=== PATIENT | female | born 1975 | race African-American/Black ===

== ENCOUNTER 2019-06-02 13:58 | Emergency (ER) | payer MEDICARE, MEDICAID, OTHER ==
--- OUTSIDE RECORDS SUMMARY | 2019-06-02 15:19 | XMS REPORT | Continuity of Care Document ---
:1975 External Reference #:[id number] Author Name [facility] (transmitted by agent of provider Brett Nguyen) Address [address] [place] [address] Care Team Providers Name Role Phone Billy Meredith DO - Interventional Care Team Information Services Coordinator Pain Medicine Bhavin Guzman MD - Internal Care Team Information Services Coordinator Medicine Joe Hurley MD - Internal Care Team Information Services Coordinator [phone] Medicine Problems Description No Information Available Social History Type Date Description Comments Sex Unknown ETOH Use Denies alcohol use Tobacco Use Start: Unknown Light tobacco smoker (10 1/2 ppd or fewer cigarettes/day) Recreational Drug Use Regularly uses Marijuana nightly Exercise Type/Frequency Exercises regularly no exercise regimen but stays active Allergies, Adverse Reactions, Alerts Active Allergies Reaction Severity Comments Date Penicillin throat swells and itching 06/10/2009 Darvocet throat swells and itching 06/10/2009 Tylenol itching and stomach ache 06/10/2009 Naproxen 04/05/2017 Latex 04/05/2017 Shellfish-Derived Products 04/05/2017 Benzonatate 04/05/2017 Morphine 04/05/2017 Medications Active Medications SIG Qnty Indications Ordering Date Provider Kenalog tid 30gm 692.3 Thomas, 08/25/2009 0.1% Cream MD Bhavin Vicoprofen 1 po q 4 hours 25tabs Jarod Singh, 06/10/2009 7.5-200mg prn pain M.D. Tablets Nexium 24HR 1 by mouth three Unknown 20mg Capsules times per day DR Shi ER 2 by mouth daily Unknown 15mg Tab ER 12H Abuse-Det Opana ER 1 by mouth daily Unknown 10mg Tab ER 12H Abuse-Det Sumatriptan Succinate use at onset of Unknown 100mg head ache,may Tablets repeat after 2h as needed Cyclobenzaprine HCL 1 tablet by Unknown 10mg mouth q8 hours Tablets as needed muscle spasms Ketotifen Fumarate 1 drop each eye Unknown 0.025% twice a day for Solution 2 weeks Cetirizine HCL as needed Unknown 10mg Chewtabs Buspirone HCL 1 by mouth three Unknown 15mg Tablets times per day Opana - Slow Release by mouth three Unknown 10mg to four times a Tablets day as needed Opana ER bid Unknown 30mg Tab ER 12H Abuse-Det Gabapentin 2 po tid Unknown 200mg Capsules Tums prn Unknown Pepto-Bismol as needed Unknown Rolaids as needed Unknown 550-110mg Chewtabs Absorbine Angel applying to Unknown right shoulder and neck prn Benadryl Allergy prn Unknown 25mg Valium 1 po q6hrs prn Unknown 5mg Tablets Medications Administered in Office Medication SIG Qnty Indications Ordering Provider Date PPD Injection Chuy Xiong MD 07/24/2018 Immunizations Description No Information Available Vital Signs Date Vital Result Comment 05/16/2017 12:54pm Height 69 inches 5'9" Weight 194.00 lb Heart Rate 94 /min BP Systolic 110 mmHg Rue reg cuff BP Diastolic 76 mmHg Rue reg cuff BP Systolic Sitting 120 mmHg Lue reg cuff BP Diastolic Sitting 78 mmHg Lue reg cuff BP Systolic Standing 108 mmHg Lue BP Diastolic Standing 84 mmHg Lue Respiratory Rate 16 /min O2 % BldC Oximetry 97 % room air BMI (Body Mass Index) 28.6 kg/m2 08/25/2009 1:26pm Weight 142.00 lb Heart Rate 82 /min BP Systolic Sitting 98 mmHg BP Diastolic Sitting 56 mmHg Results Description No Information Available Procedures Description No Information Available Medical Devices Description No Information Available Encounters Description No Information Available Assessments Description No Information Available Plan of Treatment 05/16/2017 - Manohar Acevedo, FACCR07.9 Chest pain, unspecifiedFollow up: PRNR06.02 Shortness of lcochyV16.2 PisjekczapbjA26.210 Nicotine dependence, cigarettes, uncomplicated Functional Status Description No Information Available Mental Status Description No Information Available Referrals Description No Information Available
--- OUTSIDE RECORDS SUMMARY | 2019-06-02 15:19 | XMS REPORT | Continuity of Care Document ---
:1975 External Reference #:[id number] Author Name Joe Hurley M.D. (transmitted by agent of provider Alyson Rock) Address [address] [place] [address] Care Team Providers Name Role Phone HCP given Care Team Information Mortgage Loan Coordinator Unavailable Merced Staton MD [facility] - Dermatology Care Team Information Mortgage Loan Coordinator [facility], Care Team Information Mortgage Loan Coordinator [facility] - Care Team Information Mortgage Loan Coordinator [phone] Gastroenterology Problems Active Problems Provider Date Neck pain Greg Brian D.O. Onset: 07/02/2014 Neuralgia Greg Brian D.O. Onset: 07/02/2014 Chronic pain syndrome Joe Hurley M.D. Onset: 11/13/2014 Generalized anxiety disorder Joe Hurley M.D. Onset: 11/13/2014 Restless legs Joe Hurley M.D. Onset: 11/13/2014 Fibromyalgia Joe Hurley M.D. Onset: 11/13/2014 Gastroesophageal reflux disease Joe Hurley M.D. Onset: 12/12/2016 Asthma Jane Nolasco PA Onset: 11/12/2018 Posttraumatic stress disorder Jane Nolasco PA Onset: 11/12/2018 Bilateral carpal tunnel syndrome Joe Hurley M.D. Onset: 12/04/2018 Tobacco user Joe Hurley M.D. Onset: 04/29/2019 Social History Type Date Description Comments Sex Unknown Tobacco Use Reviewed: 11/12/18 current cigarette smoker ~1ppd. Hoping to quit winter 2018. Smoking Status Reviewed: 11/12/18 current cigarette smoker ~1ppd. Hoping to quit winter 2018. Tobacco Use Start: Unknown Patient is a current smoker, smokes every day Sun Exposure Uses sunscreen Seat Belt/Car Seat Seat Belt Use - Yes Allergies, Adverse Reactions, Alerts Active Allergies Reaction Severity Comments Date Penicillins throat swelling 06/30/2014 Naproxen hives 06/30/2014 Latex rash 06/30/2014 Adhesives rash/burn skin 06/30/2014 Shellfish-derived Products "my throat closes" 08/10/2014 Benzonatate numbs throat 11/24/2015 Morphine Urticaria 01/31/2017 Medications Active Medications SIG Qnty Indications Ordering Date Provider Hydroxyzine HCL take 1-2 tablets 60tabs F41.1 Joe Hurley, 05/28/2019 25mg by mouth up to M.D. Tablets four times a day as needed for acute anxiety Sulfamethoxazole/Tri 1 by mouth twice a 6tabs N39.0 Joe Hurley, 05/27 methoprim DS day x3 days; for M.D. urinary tract 800-160mg Tablets infection Proair HFA 2 puffs every 4 J20.9 Joe Hurley, 04/29/2019 hours as needed M.D. 108(90Base) mcg/Act for cough, Aerosol wheezing, sob PT For Left Shoulder evaluate and M25.512 Joe Hurley, 04/29/2019 Pain treat, modalities M.D. as needed, instruct in hep Oxymorphone HCL ER 1 tab by mouth 60tabs G89.4 Joe Hurley, 04/29/2019 twice a day for M.D. 30mg Tablets ER 12HR chronic pain; rx due 05/04/19 Hair Skin And Nails one po daily Unknown 03/03/2019 Formula Tablets Chantix 1/2 pill once/day 60tabs F17.210 Joe Hurley, 12/04/2018 1mg Tablets x3 days then 1/2 M.D. pill 2x/day for 4 days then 1 pill twice daily; to help quit smoking; start 1wk prior to your quit date PT For Mixed (Stress evaluate and N39.46 Joe Hurley, 12/04/2018 And Urge) Urinary treat, instruct in M.D. Incontinence hep Breo Ellipta take 1 puff by 60units J45.21 Joe Hurley, 11/12/2018 mouth every day, M.DSunita 200-25mcg/Inh rinse mouth after Aerosol use Oxymorphone HCL ER 1 by mouth daily 30tabs G89.4 Joe Hurley, 2018 in the afternoon; M.D. 7.5mg Tablets ER for chronic pain; 12HR Rx due 05/04/19 Wrist Immobilizer use as directed 2units G56.03 Joe Hurley, 2018 For Both Hands For (for carpal tunnel M.D. CTS syndrome) Gabapentin 1 cap by mouth 30caps G25.81 Joe Hurley, 06/18/2017 400mg every evening for M.D. Capsules restless legs F41.1 Gabapentin 2 capsules daily in 180caps G25.81 Joe Hurley, 06/12/2017 100mg the morning and M.D. Capsules afternoon; take 2 more at night if needed; for restless legs and anxiety F41.1 Benzoyl apply to 46.6units L70.9 Mei, 05/09/2017 Peroxide-Erythromycin affected areas Tsering Diaz 5-3% Gel on face twice a day; for acne Benadryl Allergy as directed as Unknown 01/30/2017 25mg Tablets needed Buspirone HCL Take One Tablet 90tabs F41.1 Mei, 10/13/2016 15mg Tablets By Mouth Three Tsering Diaz Times A Day For Anxiety Cetirizine HCL 1 by mouth every 30tabs J30.9 Mei, 08/04/2016 10mg Tablets day as needed Tsering Diaz for allergies Escitalopram Oxalate Take One Tablet 30tabs F34.1 Mei, 02/07/2016 20mg Tablets By Mouth Every Tsering Diaz Day For Mood F41.1 Albuterol Sulfate 1 unit inhaled four 90ml J20.9 Joe Hurley, 2015 times a day as needed Tsering (2.5mg/3ML) 0.083% for cough or Nebulizer shortness of breath R06.2 Opana 1 by mouth every 6 120tabs G89.4 Joe Hurley M.D. 07/10/2014 10mg Tablets hours as needed for pain; Rx due 05/04/19 M79.7 Sumatriptan Succinate take 1/2-1 tablet 6tabs G43.109 Joe Hurley, 06/2014 100mg by mouth at first M.D. Tablets sign of migraine; may repeat in 2 hours if migraine partially relieved; max 3x/wk Cyclobenzaprine HCL Take One Tablet By 90tabs G89.4 Joe Hurley, 06/29 10mg Mouth Three Times M.D. Tablets A Day as Needed For Muscle Spasms M79.7 History Medications Oseltamivir 1 by mouth twice a 10caps R50.9 Mei 05/19/2019 - Phosphate day x5 days, for Tsering Diaz 05/20/2019 75mg suspected flu Capsules Prednisone 1 by mouth every day 5tabs J45.21 Mei 05/19/2019 - 50mg x5 days for asthma Tsering Diaz 05/24/2019 Tablets exacerbation Oseltamivir 1 by mouth every day 10caps Mei, 04/04/2019 - Phosphate x10 days; for flu Tsering Diaz 04/14/2019 75mg prevention Capsules Medications Administered in Office Medication SIG Qnty Indications Ordering Provider Date Toradol 15MG. Greg Brian D.OSunita 07/02/2014 Injection SC/Im Injections Greg Brian D.O. 07/02/2014 Injection Immunizations CPT Code Status Date Vaccine Lot # [id number] Given 12/04/2018 Influenza Virus Vaccine, Quadrivalent, Split, [id number] Preservative Free 62162 Given 02/01/2018 Influenza Virus Vaccine, Quadrivalent, Split, [id number] Preservative Free 90216 Given 01/24/2017 MMR Virus Immunization [id number] 13808 Given 12/12/2016 Influenza Virus Vaccine, Quadrivalent, Split, [id number] Preservative Free 46268 Given 12/28/2014 Influenza Virus Vaccine, Quadrivalent, Split, [id number] Preservative Free 27070 Given 07/02/2014 Adacel or Boostrix, TDaP [id number] Vital Signs Date Vital Result Comment 05/19/2019 3:08pm Heart Rate 92 /min reg Respiratory Rate 16 /min not laboured Body Temperature 98.4 F 04/29/2019 10:07am BP Systolic 98 mmHg BP Diastolic 60 mmHg Weight 207.00 lb w/shoes Results Test Acquired Date Facility Test Result H/L Range Note Influenza A & B 05/19/2019 [facility] Flu AB (SEE NOTE) 1 Request [phone] Disclaimer Influenza A Molecular Negative Negative Influenza B Molecular Negative Negative 2 Laboratory test 05/19/2019 [facility] Covid19, PCR Undetected 3 finding [phone] CBC Auto Diff 03/12/2019 [facility] White Blood 7.7 10^3/uL Normal 3.5-10 [phone] Count .8 Red Blood Count 4.23 10^6/uL Normal 3.70-4.87 Hemoglobin 12.0 g/dL Normal 12.0-16.0 Hematocrit 36 % Normal 35-47 Mean Corpuscular Volume 86 fL Normal 80-97 Mean Corpuscular Hemoglobin 28 pg Normal 27-31 Mean Corpuscular HGB Conc 33 g/dL Normal 31-36 Red Cell Distribution Width 14 % Normal 10-15 Platelet Count 291 10^3/uL Normal 150-450 Mean Platelet Volume 7.9 fL Normal 7.4-10.4 Abs Neutrophils 4.3 10^3/uL Normal 1.5-7.7 Abs Lymphocytes 2.7 10^3/uL Normal 1.0-4.8 Abs Monocytes 0.4 10^3/uL Normal 0-0.8 Abs Eosinophils 0.2 10^3/uL Normal 0-0.6 Abs Basophils 0.1 10^3/uL Normal 0-0.2 Abs Nucleated RBC 0.0 10^3/uL Granulocyte % 55.8 % Lymphocyte % 35.0 % Monocyte % 5.4 % Eosinophil % 2.8 % Basophil % 1.0 % Nucleated Red Blood Cells % 0.2 Comp Metabolic Panel 03/12/2019 [facility] Sodium 138 mmol/L Normal 135-145 [phone] Potassium 3.8 mmol/L Normal 3.5-5.0 Chloride 109 mmol/L Normal 101-111 Co2 Carbon Dioxide 22 mmol/L Normal 22-32 Anion Gap 7 mmol/L Normal 2-11 Glucose 111 mg/dL High 70-100 Blood Urea Nitrogen 7 mg/dL Normal 6-24 Creatinine 0.71 mg/dL Normal 0.51-0.95 BUN/Creatinine Ratio 9.9 Normal 8-20 Calcium 8.8 mg/dL Normal 8.6-10.3 Total Protein 6.7 g/dL Normal 6.4-8.9 Albumin 3.8 g/dL Normal 3.2-5.2 Globulin 2.9 g/dL Normal 2-4 Albumin/Globulin Ratio 1.3 Normal 1-3 Total Bilirubin 0.30 mg/dL Normal 0.2-1.0 Alkaline Phosphatase 56 U/L Normal 34-104 Alt 10 U/L Normal 7-52 Ast 12 U/L Low 13-39 Egfr Non- 90.7 >60 Egfr 109.8 >60 4 Laboratory test finding 03/12/2019 [facility] Lipase 15 U/L Normal 11.0-82.0 [phone] HCG < 0.60 mIU/mL 5 C Reactive Protein 3.36 mg/L Normal <8.01 Erythrocyte Sed Rate 26 mm/Hr High 0-19 1 Suboptimal collection technique may reduce sensitivity of test. Refer to the [facility] Test Catalog for collection information: [email or web address] As with all diagnostic procedures, the laboratory results obtained should be used in conjunction with other clinical information available to the physician, including confirmation by another method, as applicable. 2 Tobacco Stripping Machine Operator: [id number] 3 Test Name Result Reference Range SARS-CoV-2 RNA Undetected Undetected SARS-CoV-2 RNA is not detected. ADDITIONAL INFORMATION Testing was performed using the tori SARS-CoV-2 assay ([employer] on the tori 6800 System. Fact sheets for this Emergency Use Authorization (EUA) assay can be found at the following links: For Healthcare Providers: https://www.[employer].gov/media/451627/download For Patients: https://www.[employer].gov/media/157289/download Test Performed by: [facility] [address] [place] [address] Hand Therapist: John Stroud M.D. Ph.D.; CLIA# [id number] 4 Because ethnic data is not always readily available, this report includes an eGFR for both -Americans and non- Americans. The National Kidney Disease Education Program (NKDEP) does not endorse the use of the MDRD equation for patients that are not between the ages of 18 and 70, are , have extremes of body size, muscle mass, or nutritional status, or are non- or non-. According to the National Kidney Foundation, irrespective of diagnosis, the stage of the disease is based on the level of kidney function: Stage Description GFR(mL/min/1.73 m(2)) 1 Kidney damage with normal or decreased GFR 90 2 Kidney damage with mild decrease in GFR 60-89 3 Moderate decrease in GFR 30-59 4 Severe decrease in GFR 15-29 5 Kidney failure <15 (or dialysis) 5 <5.0 Negative 5.0 - 25.0 Indeterminate (Repeat testing recommended after 72 hours) >25.0 Positive Perimenopausal women can display HCG levels of up to 20 mIU/mL Procedures Description No Information Available Medical Devices Description No Information Available Encounters Type Date Location Provider Dx Diagnosis Office Visit 05/28/2019 3:00p Main Office Joe Hurley M.D. R05 Cough R50.9 Fever, unspecified J45.21 Mild intermittent asthma with (acute) exacerbation F41.1 Generalized anxiety disorder N39.0 Urinary tract infection, site not specified W17.89xD Other fall from one level to another, subsequent encounter Office Visit 05/19/2019 1:15p Main Office Joe Hurley M.D. R05 Cough R50.9 Fever, unspecified R06.00 Dyspnea, unspecified J45.21 Mild intermittent asthma with (acute) exacerbation F41.1 Generalized anxiety disorder Office Visit 05/16/2019 1:30p Main Office Joe Hurley, F43.22 Adjustment M.D. disorder with anxiety Office Visit 04/29/2019 9:45a Main Office Joe Hurley, M25.512 Pain in left M.D. shoulder G89.4 Chronic pain syndrome Z79.891 intermediate (current) use of opiate analgesic F17.210 Nicotine dependence, cigarettes, uncomplicated G25.81 Restless legs syndrome M79.7 Fibromyalgia F34.1 Dysthymic disorder F41.1 Generalized anxiety disorder Office Visit 03/18/2019 2:30p Main Office Tawanna Zacarias, R10.11 Right upper MD quadrant pain Z68.29 Body mass index (BMI) 29.0-29.9, adult Office Visit 03/04/2019 11:15a Main Office Joe Hurley G89.4 Chronic pain M.D. 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 05/28/2019 R50.9 Fever, unspecified Joe Hurley M.D. 05/28/2019 J45.21 Mild intermittent asthma with (acute) Joe Hurley M.D. exacerbation 05/28/2019 F41.1 Generalized anxiety disorder Joe Hurley M.D. 05/28/2019 N39.0 Urinary tract infection, site not specified Joe Hurley M.D. 05/28/2019 W17.89xD Other fall from one level to another, Joe Hurley M.D. subsequent encounter 05/19/2019 R05 Cough Joe Hurley M.D. 05/19/2019 R50.9 Fever, unspecified Joe Hurley M.D. 05/19/2019 R06.00 Dyspnea, unspecified Joe Hurley M.D. 05/19/2019 J45.21 Mild intermittent asthma with (acute) Joe Hurley M.D. exacerbation 05/19/2019 F41.1 Generalized anxiety disorder Joe Hurley M.D. 05/16/2019 F43.22 Adjustment disorder with anxiety Joe Hurley M.D. 04/29/2019 M25.512 Pain in left shoulder Joe Hurley M.D. 04/29/2019 G89.4 Chronic pain syndrome Joe Hurley M.D. 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 04/29/2019 F17.210 Nicotine dependence, cigarettes, Joe Hurley M.D. uncomplicated 04/29/2019 G25.81 Restless legs syndrome Joe Hurley M.D. 04/29/2019 M79.7 Fibromyalgia Joe Hurley M.D. 04/29/2019 F34.1 Dysthymic disorder Joe Hurley M.D. 04/29/2019 F41.1 Generalized anxiety disorder Joe Hurley M.D. 03/18/2019 R10.11 Right upper quadrant pain Tawanna Zacarias MD 03/18/2019 Z68.29 Body mass index (BMI) 29.0-29.9, adult Tawanna Zacarias MD 03/04/2019 G89.4 Chronic pain syndrome Joe Hurley M.D. 03/04/2019 Z79.891 intermediate (current) use of opiate analgesic Joe Hurley M.D. 03/04/2019 F17.210 Nicotine dependence, cigarettes, Joe Hurley M.D. uncomplicated 03/04/2019 G25.81 Restless legs syndrome Joe Hurley M.D. 03/04/2019 M79.7 Fibromyalgia Joe Hurley M.D. 03/04/2019 F34.1 Dysthymic disorder Joe Hurley M.D. 03/04/2019 F41.1 Generalized anxiety disorder Joe Hurley M.D. 03/04/2019 N39.46 Mixed incontinence Joe Hurley M.D. 03/04/2019 Z68.30 Body mass index (BMI) 30.0-30.9, adult Joe Hurley M.D. 12/04/2018 F17.210 Nicotine dependence, cigarettes, Joe Hurley M.D. uncomplicated 12/04/2018 G89.4 Chronic pain syndrome Joe Hurley M.D. 12/04/2018 Z79.891 intermediate (current) use of opiate analgesic Joe Hurley M.D. 12/04/2018 G56.03 Carpal tunnel syndrome, bilateral upper Joe Hurley M.D. limbs 12/04/2018 G25.81 Restless legs syndrome Joe Hurley M.D. 12/04/2018 M79.7 Fibromyalgia Joe Hurley M.D. 12/04/2018 F34.1 Dysthymic disorder Joe Hurley M.D. 12/04/2018 F41.1 Generalized anxiety disorder Joe Hurley M.D. 12/04/2018 N39.46 Mixed incontinence Joe Hurley M.D. 12/04/2018 Z23 Encounter for immunization Joe Hurley M.D. 12/04/2018 J45.21 Mild intermittent asthma with (acute) Joe Hurley M.D. exacerbation Plan of Treatment Future Appointment(s):07/01/2019 4:45 pm - Joe Hurley M.D. at Main [id number]/01/2017 - Jane Nolasco, PAB37.0 Candidal stomatitisNew Medication: Nystatin 812794 Unit/ML - 5ml by mouth (swish and spit) four times a day x7 daysComments:Rx for Nystatin oral solution (swish and spit). Discussed proper wear and cleaning of dentures. Recheck if sx not improving.R53.83 Other fatigueComments:Labs as below. Pt has f/u appt next month. Functional Status Description No Information Available Mental Status Description No Information Available Referrals Description No Information Available
--- OUTSIDE RECORDS SUMMARY | 2019-06-02 15:19 | XMS REPORT | Continuity of Care Document ---
:1975 External Reference #:[id number] Author Name Joe Hurley M.D. (transmitted by agent of provider Lindsey Villalobos) Address [address] [facility] [address] [place] [address] Care Team Providers Name Role Phone HCP given Care Team Information Outer Diameter Grinder Unavailable Merced Staton MD Faad - Dermatology Care Team Information Outer Diameter Grinder [facility], Care Team Information Outer Diameter Grinder [facility] [place] - Care Team Information Outer Diameter Grinder [phone] Gastroenterology Problems Active Problems Provider Date Neck [...] Medications SIG Qnty Indications Ordering Date Provider Prednisone 1 by mouth every 5tabs J45.21 Silcoff, 05/19/2019 50mg day x5 days for Tsering Diaz Tablets asthma exacerbation Proair HFA 2 puffs every 4 J20.9 Silcoff, 04/29/2019 hours as needed for Tsering Diaz 108(90Base) mcg/Act cough, wheezing, Aerosol sob PT For Left Shoulder evaluate and treat, M25.512 Silcoff, 04/29/2019 Pain modalities as Tsering Diaz needed, instruct in hep Oxymorphone HCL ER 1 tab by mouth 60tabs G89.4 Silcoff, 04/29/2019 twice a day for Tsering Diaz 30mg Tablets ER 12HR chronic pain; rx due 05/04/19 Hair Skin And Nails one po daily Unknown 03/03/2019 Formula Tablets Chantix 1/2 pill once/day 60tabs F17.210 Silcoff, 12/04/2018 1mg Tablets x3 days then 1/2 Tsering Diaz pill 2x/day for 4 days then 1 pill twice daily; to help quit smoking; start 1wk prior to your quit date PT For Mixed (Stress evaluate and treat, N39.46 Silcoff, 12/04/2018 And Urge) Urinary instruct in hep Tsering Diaz Incontinence Breo Ellipta take 1 puff by 60units J45.21 Silcoff, 11/12/2018 mouth every day, Tsering Diaz 200-25mcg/Inh rinse mouth after Aerosol use Oxymorphone HCL ER 1 by mouth daily in 30tabs G89.4 Silco, 11/09/2018 the afternoon; for Tsering Diaz 7.5mg Tablets ER chronic pain; Rx 12HR due 05/04/19 Wrist Immobilizer use as directed 2units G56.03 Silco, 06/07/2018 For Both Hands For (for carpal tunnel Tsering Diaz CTS syndrome) Gabapentin 1 cap by mouth 30caps G25.81 Silcomaricel, 06/18/2017 400mg every evening for Tsering Diaz Capsules restless legs F41.1 Gabapentin 2 capsules daily in 180caps G25.81 [facility], [facility]12[facility]2017 100mg the morning and M.DSunita Capsules afternoon; take 2 more at night if needed; for restless legs and anxiety F41.1 Benzoyl apply to 46.6units L70.9 [facility] [place] 05/09/2017 Peroxide-Erythromycin affected areas Tsering Diaz 5-3% Gel on face twice a day; for acne Benadryl Allergy as directed as Unknown 01/30/2017 25mg Tablets needed Buspirone HCL Take One Tablet 90tabs F41.1 [facility], 10/13/2016 15mg Tablets By Mouth Three Tsering Diaz Times A Day For Anxiety Cetirizine HCL 1 by mouth every 30tabs J30.9 Nirmalaco, 08/04/2016 10mg Tablets day as needed Tsering [...] HCL Take One Tablet By 90tabs G89.4 Mei Joe, 06/29 10mg Mouth Three Times M.D. Tablets A Day as Needed For Muscle Spasms M79.7 History Medications Oseltamivir 1 by mouth twice a 10caps R50.9 Mei Joe, 05/19/2019 - Phosphate day x5 days, for M.D. 05/20/2019 75mg suspected flu Capsules Oseltamivir 1 by mouth every 10caps Joe Hurley, 04/04/2019 - Phosphate day x10 days; for M.D. 04/14/2019 75mg flu prevention Capsules Medications Administered in Office Medication SIG Qnty Indications Ordering Provider Date Toradol 15MG. Greg Brian D.OSunita 07/02/2014 Injection SC/Im Injections Greg Brian D.OSunita 07/02/2014 Injection Immunizations CPT Code Status Date Vaccine Lot # [id number] Given 12/04/2018 Influenza Virus Vaccine, Quadrivalent, Split, [id number] Preservative Free 08623 Given 02/01/2018 Influenza Virus Vaccine, Quadrivalent, Split, [id number] Preservative Free 94723 Given 01/24/2017 MMR Virus Immunization [id number] 92114 Given 12/12/2016 Influenza Virus Vaccine, Quadrivalent, Split, [id number] Preservative Free 32696 Given 12/28/2014 Influenza Virus Vaccine, Quadrivalent, Split, [id number] Preservative Free 07372 Given 07/02/2014 Adacel or Boostrix, TDaP [id number] Vital Signs Date Vital Result Comment 05/19/2019 3:08pm Heart Rate 92 /min reg Respiratory Rate 16 /min not laboured Body Temperature 98.4 F 04/29/2019 10:07am BP Systolic 98 mmHg BP Diastolic 60 mmHg Weight 207.00 lb w/shoes Results Test Acquired Date Facility Test Result H/L Range Note Influenza A & B 05/19/2019 [facility] Flu AB (SEE NOTE) 1 Request [phone] Disclaimer Influenza A Molecular Negative Negative Influenza B Molecular Negative Negative 2 CBC Auto Diff 03/12/2019 [facility] White Blood 7.7 10^3/uL Normal 3.5-10.8 [phone] Count Red Blood Count 4.23 10^6/uL Normal 3.70-4.87 [...] Cells % 0.2 Comp Metabolic Panel 03/12/2019 [facility] Sodium 138 mmol/L Normal 135-145 [phone] Potassium 3.8 mmol/L Normal 3.5-5.0 Chloride 109 [...] Egfr Non- 90.7 >60 Egfr 109.8 >60 3 Laboratory test finding 03/12/2019 [facility] Lipase 15 U/L Normal 11.0-82.0 [phone] HCG < 0.60 mIU/mL 4 C Reactive Protein 3.36 mg/L Normal <8.01 Erythrocyte Sed Rate 26 mm/Hr High 0-19 1 Suboptimal collection technique may reduce sensitivity of test. Refer to the [facility] Test Catalog for collection information: [email or web address] As with all diagnostic procedures, the laboratory results obtained should be used in conjunction with other clinical information available to the physician, including confirmation by another method, as applicable. 2 Internet Marketing Director: [id number] 3 Because ethnic data is not always readily [...] 15-29 5 Kidney failure <15 (or dialysis) 4 <5.0 Negative 5.0 - 25.0 Indeterminate (Repeat testing recommended after 72 hours) >25.0 Positive Perimenopausal women can display HCG levels of up to 20 mIU/mL Procedures Description No Information Available Medical Devices Description No Information Available Encounters Type Date Location Provider Dx Diagnosis Office Visit 05/19/2019 1:15p Main Office Joe Hurley M.D. R05 Cough R50.9 Fever, unspecified R06.00 Dyspnea, unspecified J45.21 Mild intermittent asthma with (acute) exacerbation F41.1 Generalized anxiety disorder Office Visit 05/16/2019 1:30p Main Office Joe Hurley, F43.22 Adjustment M.D. disorder with anxiety Office Visit 04/29/2019 9:45a Main Office Joe Hurley, M25.512 Pain in left M.D. shoulder G89.4 Chronic pain syndrome Z79.891 [facility] (current) use of opiate analgesic F17.210 Nicotine dependence, cigarettes, uncomplicated G25.81 Restless legs syndrome M79.7 Fibromyalgia F34.1 Dysthymic disorder F41.1 Generalized anxiety disorder Office Visit 03/18/2019 2:30p Main Office Tawanna Zacarias, R10.11 Right upper MD quadrant pain Z68.29 Body mass index (BMI) 29.0-29.9, adult Office Visit 03/04/2019 11:15a Main Office Joe Hurley, G89.4 Chronic pain M.D. syndrome Z79.891 [facility] (current) use of opiate analgesic F17.210 Nicotine dependence, cigarettes, uncomplicated G25.81 Restless legs syndrome M79.7 Fibromyalgia F34.1 Dysthymic disorder F41.1 Generalized anxiety disorder N39.46 Mixed incontinence Z68.30 Body mass index (BMI) 30.0-30.9, adult Office Visit 12/04/2018 10:15a Main Office Mei F17.210 Nicotine Joe moffett M.D. cigarettes, uncomplicated G89.4 Chronic pain syndrome Z79.891 termination clerk (current) use of opiate analgesic G56.03 Carpal tunnel syndrome, bilateral upper limbs G25.81 Restless legs syndrome M79.7 Fibromyalgia F34.1 Dysthymic disorder F41.1 Generalized anxiety disorder N39.46 Mixed incontinence Z23 Encounter for immunization J45.21 Mild intermittent asthma with (acute) exacerbation Assessments Date Code Description Provider 05/19/2019 R05 Cough Joe Hurley M.D. 05/19/2019 [...] pain syndrome Joe Hurley M.D. 04/29/2019 Z79.891 [facility] (current) use of opiate analgesic Joe Hurley [...] pain syndrome Joe Hurley M.D. 03/04/2019 Z79.891 [facility] (current) use of opiate analgesic Joe Hurley [...] pain syndrome Joe Hurley M.D. 12/04/2018 Z79.891 [facility] (current) use of opiate analgesic Joe Hurley [...] pm - Joe Hurley M.D. at Main Qqzjij5011/01/2017 - Jane Nolasco, PAB37.0 Candidal stomatitisNew Medication: Nystatin 602396 Unit/ML - 5ml by mouth (swish and [...]
--- OUTSIDE RECORDS SUMMARY | 2019-06-02 15:19 | XMS REPORT | Continuity of Care Document ---
:1975 External Reference #:[id number] Author Name Joe Hurley M.D. (transmitted by agent of provider Lindsey Villalobos) Address [address] [facility] [address] [place] [address] Care Team Providers Name Role Phone HCP given Care Team Information Formulation Scientist Unavailable Merced Staton MD Faad - Dermatology Care Team Information Formulation Scientist [phone] [place] [facility], Care Team Information Formulation Scientist [phone] [facility] [place] - Care Team Information Formulation Scientist [phone] Gastroenterology Problems Active Problems Provider Date Neck pain Greg Brian D.O. Onset: 07/02/2014 Neuralgia Greg Brian D.O. Onset: 07/02/2014 Chronic pain syndrome Joe Hurley M.D. Onset: 11/13/2014 Generalized anxiety disorder Joe Hurley M.D. Onset: 11/13/2014 Restless legs Joe Hurley M.D. Onset: 11/13/2014 Fibromyalgia Joe Hurley M.D. Onset: 11/13/2014 Gastroesophageal reflux disease Joe Hruley M.D. Onset: 12/12/2016 Asthma Jane Nolasco PA Onset: 11/12/2018 Posttraumatic stress disorder Jane Nolasco PA Onset: 11/12/2018 Bilateral carpal tunnel syndrome Joe Hurley M.D. Onset: 12/04/2018 Tobacco user Joe Hruley M.D. Onset: 04/29/2019 Social History Type Date [...] CPT Code Status Date Vaccine Lot # [id number] Given 12/04/2018 Influenza Virus Vaccine, Quadrivalent, Split, [id number] Preservative Free 53124 Given 02/01/2018 Influenza Virus Vaccine, Quadrivalent, Split, [id number] Preservative Free 53014 Given 01/24/2017 MMR Virus Immunization [id number] 17020 Given 12/12/2016 Influenza Virus Vaccine, Quadrivalent, Split, [id number] Preservative Free 89838 Given 12/28/2014 Influenza Virus Vaccine, Quadrivalent, Split, [id number] Preservative Free 81781 Given 07/02/2014 Adacel or Boostrix, TDaP [id number] Vital Signs Date Vital Result Comment 05/19/2019 3:08pm Heart Rate 92 /min reg Respiratory Rate 16 /min not laboured Body Temperature 98.4 F 04/29/2019 10:07am BP Systolic 98 mmHg BP Diastolic 60 mmHg Weight 207.00 lb w/shoes Results Test Acquired Date Facility Test Result H/L Range Note Influenza A & B 05/19/2019 [facility] Flu AB (SEE NOTE) 1 Request [phone] Disclaimer Influenza A Molecular Negative Negative Influenza B Molecular Negative Negative 2 Laboratory test 05/19/2019 [facility] Covid19, PCR Undetected 3 finding [phone] CBC Auto Diff 03/12/2019 [facility] White Blood 7.7 10^3/uL Normal 3.5-10 [phone] Count .8 Red Blood Count 4.23 10^6/uL [...] Cells % 0.2 Comp Metabolic Panel 03/12/2019 [facility] Sodium 138 mmol/L Normal 135-145 [phone] Potassium 3.8 mmol/L Normal 3.5-5.0 Chloride 109 [...] 109.8 >60 4 Laboratory test finding 03/12/2019 [facility] Lipase 15 U/L Normal 11.0-82.0 [phone] HCG < 0.60 mIU/mL 5 C Reactive Protein 3.36 mg/L Normal <8.01 Erythrocyte Sed Rate 26 mm/Hr High 0-19 1 Suboptimal collection technique may reduce sensitivity of test. Refer to the [facility] Test Catalog for collection information: [email or web address] As with all diagnostic procedures, the laboratory results obtained should be used in conjunction with other clinical information available to the physician, including confirmation by another method, as applicable. 2 Guide Dog Mobility Instructor: [id number] 3 Test Name Result Reference Range SARS-CoV-2 RNA Undetected Undetected SARS-CoV-2 RNA is not detected. ADDITIONAL INFORMATION Testing was performed using the tori SARS-CoV-2 assay ([employer] on the tori 6800 System. Fact sheets for this Emergency Use Authorization (EUA) assay can be found at the following links: For Healthcare Providers: https://www.EquityLancer.gov/media/331119/download For Patients: https://www.EquityLancer.gov/media/493105/download Test Performed by: [facility] [address] [place] [address] Pharmacology Associate: John Stroud M.D. Ph.D.; CLIA# [id number] 4 Because ethnic data is not always [...] M.D. shoulder G89.4 Chronic pain syndrome Z79.891 [facility] (current) use of opiate analgesic F17.210 Nicotine dependence, cigarettes, uncomplicated G25.81 Restless legs syndrome M79.7 Fibromyalgia F34.1 Dysthymic disorder F41.1 Generalized anxiety disorder Office Visit 03/18/2019 2:30p Main Office Tawanna Zacarias, R10.11 Right upper MD quadrant pain Z68.29 Body mass index (BMI) 29.0-29.9, adult Office Visit 03/04/2019 11:15a Main Office Joe Hurley G89.4 Chronic pain M.D. syndrome Z79.891 [facility] (current) use of opiate analgesic F17.210 Nicotine dependence, cigarettes, uncomplicated G25.81 Restless legs syndrome M79.7 Fibromyalgia F34.1 Dysthymic disorder F41.1 Generalized anxiety disorder N39.46 Mixed incontinence Z68.30 Body mass index (BMI) 30.0-30.9, adult Office Visit 12/04/2018 10:15a Main Office Mei F17.210 Nicotine Joe moffett M.D. cigarettes, uncomplicated G89.4 Chronic pain syndrome Z79.891 roasterman (current) use of opiate analgesic G56.03 Carpal [...] pain syndrome Joe Hurley M.D. 04/29/2019 Z79.891 roasterman (current) use of opiate analgesic Joe Hurley [...] pain syndrome Joe Hurley M.D. 03/04/2019 Z79.891 [facility] (current) use of opiate analgesic Joe Hurley [...] pain syndrome Joe Hurley M.D. 12/04/2018 Z79.891 roasterman (current) use of opiate analgesic Joe Hurley [...] pm - Joe Hurley M.D. at Main Hciojd2811/01/2017 - Jane Nolasco, PAB37.0 Candidal stomatitisNew Medication: Nystatin 126386 Unit/ML - 5ml by mouth (swish and [...]
--- OUTSIDE RECORDS SUMMARY | 2019-06-02 15:19 | XMS REPORT | Continuity of Care Document ---
:1975 External Reference #:[id number] Author Name Joe Hurley M.D. (transmitted by agent of provider Lindsey Villalobos) Address [address] [facility] [address] [place] [address] Care Team Providers Name Role Phone HCP given Care Team Information Cloth Laminating Supervisor Unavailable Merced Staton MD Faad - Dermatology Care Team Information Cloth Laminating Supervisor [phone] [facility], Care Team Information Cloth Laminating Supervisor [facility] [place] - Care Team Information Cloth Laminating Supervisor [phone] Gastroenterology Problems Active Problems Provider Date Neck [...] Medications SIG Qnty Indications Ordering Date Provider Proair HFA 2 puffs every 4 J20.9 [...] J45.21 Joe Hurley, 11/12/2018 mouth every day, M.D. 200-25mcg/Inh rinse mouth after Aerosol use Oxymorphone HCL ER 1 by mouth daily 30tabs G89.4 Joe Hurley, 2018 in the afternoon; M.DSunita 7.5mg Tablets ER for chronic pain; 12HR [...] Hurley, 2015 times a day as needed NelsonDSunita (2.5mg/3ML) 0.083% for cough or Nebulizer shortness [...] M79.7 History Medications Oseltamivir 1 by mouth every 10caps Joe Hurley, 04/04/2019 - Phosphate day x10 days; for M.D. 04/14/2019 75mg flu prevention Capsules Azithromycin 2 tabs by mouth 6tabs J20.9 Joe Hurley, 11/12/2018 - 250mg daily x1 day then M.D. 12/03/2018 Tablets 1 tab by mouth daily x4 days J01.90 Prednisone 1 by mouth every 5tabs J45.21 Mei, 11/09/2018 - 50mg day x5 days for Tsering Diaz 11/14/2018 Tablets asthma exacerbation Symbicort 2 puffs 2x/day; 2samples J45.21 Mei, 11/08/2018 - gargle after use; sTering Diaz 11/12/2018 160-4.5mcg/Act for acute Aerosol bronchitis Medications Administered in Office Medication SIG Qnty Indications Ordering Provider Date Toradol 15MG. Greg Brian D.OSunita 07/02/2014 Injection SC/Im Injections Greg Brian D.O. 07/02/2014 Injection Immunizations CPT Code Status Date Vaccine Lot # [id number] Given 12/04/2018 Influenza Virus Vaccine, Quadrivalent, Split, [id number] Preservative Free 59982 Given 02/01/2018 Influenza Virus Vaccine, Quadrivalent, Split, [id number] Preservative Free 83460 Given 01/24/2017 MMR Virus Immunization [id number] 60862 Given 12/12/2016 Influenza Virus Vaccine, Quadrivalent, Split, [id number] Preservative Free 32009 Given 12/28/2014 Influenza Virus Vaccine, Quadrivalent, Split, [id number] Preservative Free 66983 Given 07/02/2014 Adacel or Boostrix, TDaP [id number] Vital Signs Date Vital Result Comment 04/29/2019 10:07am BP Systolic 98 mmHg BP Diastolic 60 mmHg Weight 207.00 lb w/shoes 03/18/2019 2:49pm BP Systolic 104 mmHg BP Diastolic 80 mmHg Height 69 inches 5'9" Weight 198.00 lb BMI (Body Mass Index) 29.2 kg/m2 Results Test Acquired Date Facility Test Result H/L Range Note CBC Auto 03/12/2019 [facility] White Blood 7.7 10^3/uL Normal 3.5- 10.8 Diff [phone] Count Red Blood Count 4.23 10^6/uL Normal [...] Cells % 0.2 Comp Metabolic Panel 03/12/2019 [facility] Sodium 138 mmol/L Normal 135-145 [phone] Potassium 3.8 mmol/L Normal 3.5-5.0 Chloride 109 [...] Egfr Non- 90.7 >60 Egfr 109.8 >60 1 Laboratory test finding 03/12/2019 [facility] Lipase 15 U/L Normal 11.0-82.0 [phone] HCG < 0.60 mIU/mL 2 C Reactive Protein 3.36 mg/L Normal <8.01 Erythrocyte Sed Rate 26 mm/Hr High 0-19 1 Because ethnic data is not always readily [...] 15-29 5 Kidney failure <15 (or dialysis) 2 <5.0 Negative 5.0 - 25.0 Indeterminate (Repeat testing recommended after 72 hours) >25.0 Positive Perimenopausal women can display HCG levels of up to 20 mIU/mL Procedures Date Code Description Status 11/09/2018 09546 Oximetry, Single Completed 11/09/2018 00031 Inhalation Therapy Completed Medical Devices Description No Information Available Encounters Type Date Location Provider Dx Diagnosis Office Visit 04/29/2019 Main Office Joe Hurley, M25.512 Pain in left 9:45a M.D. shoulder G89.4 Chronic pain syndrome Z79.891 [facility] (current) use of opiate analgesic F17.210 Nicotine dependence, cigarettes, uncomplicated G25.81 Restless legs syndrome M79.7 Fibromyalgia F34.1 Dysthymic disorder F41.1 Generalized anxiety disorder Office Visit 03/18/2019 2:30p Main Office Tawanna Zacarias, R10.11 Right upper MD quadrant pain Z68.29 Body mass index (BMI) 29.0-29.9, adult Office Visit 03/04/2019 11:15a Main Office Joe Hurley G89.4 Chronic pain M.D. syndrome Z79.891 [facility] (current) use of opiate analgesic F17.210 Nicotine dependence, cigarettes, uncomplicated G25.81 Restless legs syndrome M79.7 Fibromyalgia F34.1 Dysthymic disorder F41.1 Generalized anxiety disorder N39.46 Mixed incontinence Z68.30 Body mass index (BMI) 30.0-30.9, adult Office Visit 12/04/2018 10:15a Main Office Mei F17.210 Nicotine dependence, Tsering Diaz cigarettes, uncomplicated G89.4 Chronic pain syndrome Z79.891 intermediate accountant (current) use of opiate analgesic G56.03 Carpal tunnel syndrome, bilateral upper limbs G25.81 Restless legs syndrome M79.7 Fibromyalgia F34.1 Dysthymic disorder F41.1 Generalized anxiety disorder N39.46 Mixed incontinence Z23 Encounter for immunization J45.21 Mild intermittent asthma with (acute) exacerbation Office Visit 11/12/2018 4:10p Main Office Jane Nolasco, J20.9 Acute bronchitis, PA unspecified J45.21 Mild intermittent asthma with (acute) exacerbation J01.90 Acute sinusitis, unspecified Office Visit 11/09/2018 9:30a Main Office Joe Hurley J45.21 Mild intermittent M.D. 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 04/29/2019 G89.4 Chronic pain syndrome Joe Hurley M.D. 04/29/2019 Z79.891 intermediate accountant (current) use of opiate analgesic Joe Hurley [...] syndrome Joe Hurley M.D. 03/04/2019 Z79.891 intermediate accountant (current) use of opiate analgesic Joe Hurley [...] syndrome Joe Hurley M.D. 12/04/2018 Z79.891 intermediate accountant (current) use of opiate analgesic Joe Hurley [...] asthma with (acute) Joe Hurley M.D. exacerbation 11/12/2018 J20.9 Acute bronchitis, unspecified Jane Nolasco PA 11/12/2018 J45.21 Mild intermittent asthma with (acute) Jane Nolasco PA exacerbation 11/12/2018 J01.90 Acute sinusitis, unspecified Jane Nolasco PA 11/09/2018 J45.21 Mild intermittent asthma with (acute) Joe Hurley M.D. exacerbation 11/09/2018 R06.00 Dyspnea, unspecified Joe Hurley M.D. 11/09/2018 G89.4 Chronic pain syndrome Joe Hurley M.D. 11/09/2018 M54.2 Cervicalgia Joe Hurley M.D. 11/09/2018 Z79.891 intermediate accountant (current) use of opiate analgesic Joe Hurley M.D. 11/09/2018 F17.210 Nicotine dependence, cigarettes, Joe Hurley M.D. uncomplicated Plan of Treatment Future Appointment(s):07/01/2019 4:45 pm - Joe Hurley M.D. at Main Niutsq3011/01/2017 - Jane Nolasco, PAB37.0 Candidal stomatitisNew Medication: Nystatin 083303 Unit/ML - 5ml by mouth (swish and [...]
--- OUTSIDE RECORDS SUMMARY | 2019-06-02 15:19 | XMS REPORT | Continuity of Care Document ---
:1975 External Reference #:[id number] Author Name Joe Hurley M.D. (transmitted by agent of provider Heather Marvin) Address [address] [facility] [address] [place] [address] Care Team Providers Name Role Phone HCP given Care Team Information Asbestos Wire Finisher Unavailable Merced Staton MD [facility] - Dermatology Care Team Information Asbestos Wire Finisher [facility], Care Team Information Asbestos Wire Finisher [facility] - Care Team Information Asbestos Wire Finisher [phone] Gastroenterology Problems Active Problems Provider Date Neck [...] a day as needed for acute anxiety Proair HFA 2 puffs every 4 J20.9 [...] instruct in M.D. Incontinence hep Breo Ellipta Inhale One puff By 60units J45.21 Joe Hurley, 11/12/2018 Mouth Every Day M.DSunita 200-25mcg/Inh (Rinse Mouth After Aerosol Use) Oxymorphone HCL ER 1 by mouth daily [...] Hurley, 2015 times a day as needed MSunitaDSunita (2.5mg/3ML) 0.083% for cough or Nebulizer shortness of breath R06.2 Opana 1 by mouth every 6 120tabs G89.4 Joe Hurley M.D. 07/10/2014 10mg Tablets hours as needed for pain; Rx due 3/8/20 M79.7 Sumatriptan Succinate take 1/2-1 tablet 6tabs G43.109 Joe Hurley, 06/2014 100mg by mouth at first M.D. Tablets sign of migraine; may repeat in 2 hours if migraine partially relieved; max 3x/wk Cyclobenzaprine HCL Take One Tablet By 90tabs G89.4 Joe Hurley, 06/29 10mg Mouth Three Times M.D. Tablets A Day as Needed For Muscle Spasms M79.7 History Medications Sulfamethoxazole/Trimethoprim DS 1 by mouth 6tabs N39.0 Mei, 2019 - 800-160mg twice a day x3 Joe, 05/31/2019 Tablets days; for M.D. urinary tract infection Oseltamivir Phosphate 1 by mouth 10caps R50.9 Silcoff, 05/19/2019 - 75mg Capsules twice a day x5 Joe, 05/20/2019 days, for M.D. suspected flu Prednisone 1 by mouth 5tabs J45.21 Silbrynn, 05/19/2019 - 50mg Tablets every day x5 Joe, 05/24/2019 days for asthma M.D. exacerbation Oseltamivir Phosphate 1 by mouth 10caps Silcomaricel, 04/04/2019 - 75mg Capsules every day x10 Joe, 04/14/2019 days; for flu M.D. prevention Medications Administered in Office Medication SIG Qnty Indications Ordering Provider Date Toradol 15MG. Greg Brian D.O. 07/02/2014 Injection SC/Im Injections Greg Brian D.O. 07/02/2014 Injection Immunizations CPT Code Status Date Vaccine Lot # [id number] Given 12/04/2018 Influenza Virus Vaccine, Quadrivalent, Split, [id number] Preservative Free 57936 Given 02/01/2018 Influenza Virus Vaccine, Quadrivalent, Split, [id number] Preservative Free 42907 Given 01/24/2017 MMR Virus Immunization [id number] 81238 Given 12/12/2016 Influenza Virus Vaccine, Quadrivalent, Split, [id number] Preservative Free 25848 Given 12/28/2014 Influenza Virus Vaccine, Quadrivalent, Split, [id number] Preservative Free 15035 Given 07/02/2014 Adacel or Boostrix, TDaP [id number] Vital Signs Date Vital Result Comment 05/19/2019 3:08pm Heart Rate 92 /min reg Respiratory Rate 16 /min not laboured Body Temperature 98.4 F 04/29/2019 10:07am BP Systolic 98 mmHg BP Diastolic 60 mmHg Weight 207.00 lb w/shoes Results Test Acquired Date Facility Test Result H/L Range Note Influenza A & B 05/19/2019 [facility] Flu AB (SEE NOTE) 1 Request [phone] Disclaimer Influenza A Molecular Negative Negative Influenza B Molecular Negative Negative 2 Laboratory test 05/19/2019 [facility] Covid19, PCR Undetected 3 finding [phone] CBC Auto Diff 03/12/2019 [facility] White Blood 7.7 10^3/uL Normal 3.5-10 [phone] Count .8 Red Blood Count 4.23 10^6/uL [...] Cells % 0.2 Comp Metabolic Panel 03/12/2019 [facility] Sodium 138 mmol/L Normal 135-145 [phone] Potassium 3.8 mmol/L Normal 3.5-5.0 Chloride 109 [...] 109.8 >60 4 Laboratory test finding 03/12/2019 [facility] Lipase 15 U/L Normal 11.0-82.0 [phone] HCG < 0.60 mIU/mL 5 C Reactive Protein 3.36 mg/L Normal <8.01 Erythrocyte Sed Rate 26 mm/Hr High 0-19 1 Suboptimal collection technique may reduce sensitivity of test. Refer to the [facility] Test Catalog for collection information: [email or web address] As with all diagnostic procedures, the laboratory results obtained should be used in conjunction with other clinical information available to the physician, including confirmation by another method, as applicable. 2 Driver Salesman: [id number] Test Name Result Reference Range SARS-CoV-2 RNA Undetected Undetected SARS-CoV-2 RNA is not detected. ADDITIONAL INFORMATION Testing was performed using the tori SARS-CoV-2 assay ([employer] on the tori 6800 System. Fact sheets for this Emergency Use Authorization (EUA) assay can be found at the following links: For Healthcare Providers: https://www.Invenshure.gov/media/518291/download For Patients: https://www.Invenshure.gov/media/594862/download Test Performed by: [facility] [address] [place] [address] Acid Dumper: John Stroud M.D. Ph.D.; CLIA# [id number] 4 Because ethnic data is not always [...] Date Location Provider Dx Diagnosis Office Visit 06/02/2019 Main Office Joe Hurley, R06.00 Dyspnea, unspecified 1:15p Tsering R05 Cough J45.21 Mild intermittent asthma with (acute) exacerbation N39.0 Urinary tract infection, site not specified Office Visit 05/28/2019 3:00p Main Office Joe [...] Office Visit 04/29/2019 9:45a Main Office Joe Hurley M25.512 Pain in left M.D. shoulder G89.4 Chronic pain syndrome Z79.891 intermediate card tender (current) use of opiate analgesic F17.210 Nicotine dependence, cigarettes, uncomplicated G25.81 Restless legs syndrome M79.7 Fibromyalgia F34.1 Dysthymic disorder F41.1 Generalized anxiety disorder Office Visit 03/18/2019 2:30p Main Office Tawanna Zacarias, R10.11 Right upper MD quadrant pain Z68.29 Body mass index (BMI) 29.0-29.9, adult Office Visit 03/04/2019 11:15a Main Office Joe Hurley G89.4 Chronic pain M.D. syndrome Z79.891 skilled nursing (current) use of opiate analgesic F17.210 Nicotine dependence, cigarettes, uncomplicated G25.81 Restless legs syndrome M79.7 Fibromyalgia F34.1 Dysthymic disorder F41.1 Generalized anxiety disorder N39.46 Mixed incontinence Z68.30 Body mass index (BMI) 30.0-30.9, adult Office Visit 12/04/2018 10:15a Main Office Mei F17.210 Nicotine dependence, Tsering Diaz cigarettes, uncomplicated G89.4 Chronic pain syndrome Z79.891 skilled nursing (current) use of opiate analgesic G56.03 Carpal tunnel syndrome, bilateral upper limbs G25.81 Restless legs syndrome M79.7 Fibromyalgia F34.1 Dysthymic disorder F41.1 Generalized anxiety disorder N39.46 Mixed incontinence Z23 Encounter for immunization J45.21 Mild intermittent asthma with (acute) exacerbation Assessments Date Code Description Provider 06/02/2019 R06.00 Dyspnea, unspecified Joe Hurley M.D. 06/02/2019 R05 Cough Joe Hurley M.D. 06/02/2019 J45.21 Mild intermittent asthma with (acute) Joe Hurley M.D. exacerbation 06/02/2019 N39.0 Urinary tract infection, site not specified Joe Hurley M.D. 05/28/2019 R05 Cough Joe Hurley M.D. 05/28/2019 [...] pain syndrome Joe Hurley M.D. 04/29/2019 Z79.891 skilled nursing (current) use of opiate analgesic Joe Hurley [...] syndrome Joe Hurley M.D. 03/04/2019 Z79.891 intermediate card tender (current) use of opiate analgesic Joe Hurley [...] pain syndrome Joe Hurley M.D. 12/04/2018 Z79.891 skilled nursing (current) use of opiate analgesic Joe Hurley M.D. 12/04/2018 G56.03 Carpal tunnel syndrome, bilateral upper Joe Hulrey M.D. limbs 12/04/2018 G25.81 Restless legs syndrome [...] pm - Joe Hurley M.D. at Main Yppkxd4411/01/2017 - Jane Nolasco, PAB37.0 Candidal stomatitisNew Medication: Nystatin 947627 Unit/ML - 5ml by mouth (swish and [...]
--- OUTSIDE RECORDS SUMMARY | 2019-06-02 15:19 | XMS REPORT | Continuity of Care Document ---
:1975 External Reference #:[id number] Author Name Joe Hurley M.D. (transmitted by agent of provider Lindsey Villalobos) Address [address] [facility] [address] [place] [address] Care Team Providers Name Role Phone HCP given Care Team Information Superintendent Transportation Unavailable Merced Staton MD [facility] - Dermatology Care Team Information Superintendent Transportation [facility], Care Team Information Superintendent Transportation [phone] [facility] - Care Team Information Superintendent Transportation [phone] Gastroenterology Problems Active Problems Provider Date Neck [...] Medications SIG Qnty Indications Ordering Date Provider Oseltamivir 1 by mouth twice a 10caps R50.9 Silcoff, 05/19/2019 Phosphate day x5 days, for Tsering Diaz 75mg suspected flu Capsules Prednisone 1 by mouth every 5tabs J45.21 [...] Ellipta take 1 puff by 60units J45.21 Silcomaricel, 11/12/2018 mouth every day, Tsering Diaz 200-25mcg/Inh rinse mouth after Aerosol use Oxymorphone HCL ER 1 by mouth daily in 30tabs G89.4 Silcoff, 11/09/2018 the afternoon; for Tsering Diaz 7.5mg Tablets ER chronic pain; Rx 12HR due 05/04/19 Wrist Immobilizer use as directed 2units G56.03 Silcoff, 06/07/2018 For Both Hands For (for carpal tunnel Tsering Diaz CTS syndrome) Gabapentin 1 cap by mouth 30caps G25.81 Silcomaricel, 06/18/2017 400mg every evening for Tsering Diaz Capsules restless legs F41.1 Gabapentin 2 capsules daily in 180caps G25.81 Silcoff, Joe, 06/12/2017 100mg the morning and M.DSunita Capsules afternoon; take 2 more at night if needed; for restless legs and anxiety F41.1 Benzoyl apply to 46.6units L70.9 Silcoff, 05/09/2017 Peroxide-Erythromycin affected areas Tsering Diaz 5-3% Gel on face twice a day; for acne Benadryl Allergy as directed as Unknown 01/30/2017 25mg Tablets needed Buspirone HCL Take One Tablet 90tabs F41.1 Silcoff, 10/13/2016 15mg Tablets By Mouth Three Tsering Diaz Times A Day For Anxiety Cetirizine HCL 1 by mouth every 30tabs J30.9 Silcoff, 08/04/2016 10mg Tablets day as needed Tsering Diaz for allergies Escitalopram Oxalate Take One Tablet 30tabs F34.1 Silcoff, 02/07/2016 20mg Tablets By Mouth Every Tsering Diaz Day For Mood F41.1 Albuterol Sulfate 1 unit inhaled four 90ml J20.9 Silcoff, Joe, 2015 times a day as needed MPaz (2.5mg/3ML) 0.083% for cough or Nebulizer shortness [...] For Muscle Spasms M79.7 History Medications Oseltamivir Phosphate 1 by mouth every 10caps Joe Hurley, 2019 - day x10 days; for M.D. 04/14/2019 75mg Capsules flu prevention Medications Administered in Office Medication SIG Qnty Indications Ordering Provider Date Toradol 15MG. Greg Brian D.OSunita 07/02/2014 Injection SC/Im Injections Greg Brian D.OSunita 07/02/2014 Injection Immunizations CPT Code Status Date Vaccine Lot # 33095 Given 12/04/2018 Influenza Virus Vaccine, Quadrivalent, Split, [id number] Preservative Free 90874 Given 02/01/2018 Influenza Virus Vaccine, Quadrivalent, Split, [id number] Preservative Free 86822 Given 01/24/2017 MMR Virus Immunization [id number] 41180 Given 12/12/2016 Influenza Virus Vaccine, Quadrivalent, Split, [id number] Preservative Free 93446 Given 12/28/2014 Influenza Virus Vaccine, Quadrivalent, Split, [id number] Preservative Free 04661 Given 07/02/2014 Adacel or Boostrix, TDaP [id number] Vital Signs Date Vital Result Comment 05/19/2019 3:08pm Respiratory Rate 16 /min not laboured Body Temperature 98.4 F 04/29/2019 10:07am BP Systolic 98 mmHg BP Diastolic 60 mmHg Weight 207.00 lb w/shoes Results Test Acquired Date Facility Test Result H/L Range Note Influenza A & B 05/19/2019 [facility] Flu AB (SEE NOTE) 1 Request [phone] Disclaimer Influenza A Molecular Negative Negative Influenza B Molecular Negative Negative 2 CBC Auto Diff 03/12/2019 [facility] White Blood 7.7 10^3/uL Normal 3.5-10.8 [phone] Count Red Blood Count 4.23 10^6/uL Normal [...] Cells % 0.2 Comp Metabolic Panel 03/12/2019 [facility] Sodium 138 mmol/L Normal 135-145 [phone] Potassium 3.8 mmol/L Normal 3.5-5.0 Chloride 109 [...] 109.8 >60 3 Laboratory test finding 03/12/2019 [facility] Lipase 15 U/L Normal 11.0-82.0 [phone] HCG < 0.60 mIU/mL 4 C Reactive Protein 3.36 mg/L Normal <8.01 Erythrocyte Sed Rate 26 mm/Hr High 0-19 1 Suboptimal collection technique may reduce sensitivity of test. Refer to the [facility] Test Catalog for collection information: [email or web address] As with all diagnostic procedures, the laboratory results obtained should be used in conjunction with other clinical information available to the physician, including confirmation by another method, as applicable. 2 Drafter Assistant: [id number] 3 Because ethnic data is not always [...] intermittent asthma with (acute) exacerbation Office Visit 05/16/2019 1:30p Main Office Joe Hurley F43.22 Adjustment M.D. disorder with anxiety Office Visit 04/29/2019 9:45a Main Office Joe Hurley, M25.512 Pain in left M.D. shoulder G89.4 Chronic pain syndrome Z79.891 residential (current) use of opiate analgesic F17.210 Nicotine dependence, cigarettes, uncomplicated G25.81 Restless legs syndrome M79.7 Fibromyalgia F34.1 Dysthymic disorder F41.1 Generalized anxiety disorder Office Visit 03/18/2019 2:30p Main Office Rell Tawanna L, R10.11 Right upper MD quadrant pain Z68.29 Body mass index (BMI) 29.0-29.9, adult Office Visit 03/04/2019 11:15a Main Office Joe Hurley, G89.4 Chronic pain M.D. syndrome Z79.891 residential (current) use of opiate analgesic F17.210 Nicotine dependence, cigarettes, uncomplicated G25.81 Restless legs syndrome M79.7 Fibromyalgia F34.1 Dysthymic disorder F41.1 Generalized anxiety disorder N39.46 Mixed incontinence Z68.30 Body mass index (BMI) 30.0-30.9, adult Office Visit 12/04/2018 10:15a Main Office Mei F17.210 Nicotine dependence, Tsering Diaz cigarettes, uncomplicated G89.4 Chronic pain syndrome Z79.891 rodent exterminator (current) use of opiate analgesic G56.03 Carpal [...] asthma with (acute) Joe Hurley M.D. exacerbation 05/16/2019 F43.22 Adjustment disorder with anxiety Joe Hurley M.D. 04/29/2019 M25.512 Pain in left shoulder Joe Hurley M.D. 04/29/2019 G89.4 Chronic pain syndrome Joe Hurley M.D. 04/29/2019 Z79.891 residential (current) use of opiate analgesic Joe Hurley [...] pain syndrome Joe Hurley M.D. 03/04/2019 Z79.891 residential (current) use of opiate analgesic Joe Hurley [...] pain syndrome Joe Hurley M.D. 12/04/2018 Z79.891 rodent exterminator (current) use of opiate analgesic Joe Hurley [...] J45.21 Mild intermittent asthma with (acute) Joe Hruley M.D. exacerbation Plan of Treatment Future Appointment(s):07/01/2019 4:45 pm - Joe Hurley M.D. at Main Umqyqx1105/19/2019 - Joe Hurley M.D.R05 TpiilN64.9 Fever, unspecifiedNew Medication:Oseltamivir Phosphate 75 mg - 1 by mouth twice a day x5 days, for suspected fluR06.00 Dyspnea, cckksobdrldI52.21 Mild intermittent asthma with ( acute) exacerbationNew Medication:Prednisone 50 mg - 1 by mouth every day x5 days for asthma exacerbation Functional Status Description No Information Available Mental Status Description No Information Available Referrals Description No Information Available
--- OUTSIDE RECORDS SUMMARY | 2019-06-02 15:19 | XMS REPORT | Continuity of Care Document ---
:1975 External Reference #:[id number] Author Name Joe Hurley M.D. (transmitted by agent of provider Heather Marvin) Address [address] [facility] [address] [place] [address] Care Team Providers Name Role Phone HCP given Care Team Information Technical Writing Lead/Mgr Unavailable Merced Staton MD [facility] - Dermatology Care Team Information Technical Writing Lead/Mgr [facility], Care Team Information Technical Writing Lead/Mgr [facility] - Care Team Information Technical Writing Lead/Mgr [phone] Gastroenterology Problems Active Problems Provider Date Neck [...] Hurley, 2015 times a day as needed M.DSunita (2.5mg/3ML) 0.083% for cough or Nebulizer shortness [...] CPT Code Status Date Vaccine Lot # [id number] Given 12/04/2018 Influenza Virus Vaccine, Quadrivalent, Split, [id number] Preservative Free 12057 Given 02/01/2018 Influenza Virus Vaccine, Quadrivalent, Split, [id number] Preservative Free 76726 Given 01/24/2017 MMR Virus Immunization [id number] 01812 Given 12/12/2016 Influenza Virus Vaccine, Quadrivalent, Split, [id number] Preservative Free 61080 Given 12/28/2014 Influenza Virus Vaccine, Quadrivalent, Split, [id number] Preservative Free 29293 Given 07/02/2014 Adacel or Boostrix, TDaP [id number] Vital Signs Date Vital Result Comment 04/29/2019 10:07am BP Systolic 98 mmHg BP Diastolic 60 mmHg Weight 207.00 lb w/shoes 03/18/2019 2:49pm BP Systolic 104 mmHg BP Diastolic 80 mmHg Height 69 inches 5'9" Weight 198.00 lb BMI (Body Mass Index) 29.2 kg/m2 Results Test Acquired Date Facility Test Result H/L Range Note CBC Auto 03/12/2019 [facility] White Blood 7.7 10^3/uL Normal 3.5- 10.8 Diff [phone] Count Red Blood Count 4.23 10^6/uL Normal [...] Cells % 0.2 Comp Metabolic Panel 03/12/2019 [facility] Sodium 138 mmol/L Normal 135-145 [phone] Potassium 3.8 mmol/L Normal 3.5-5.0 Chloride 109 [...] 109.8 >60 1 Laboratory test finding 03/12/2019 [facility] Lipase 15 U/L Normal 11.0-82.0 [phone] HCG < 0.60 mIU/mL 2 C Reactive [...] Date Location Provider Dx Diagnosis Office Visit 05/16/2019 Main Office Joe Hurley, F43.22 Adjustment disorder 1:30p M.D. with anxiety Office Visit 04/29/2019 Main Office Joe Hurley, M25.512 Pain in left 9:45a M.D. shoulder G89.4 Chronic pain syndrome Z79.891 group home (current) use of opiate analgesic F17.210 Nicotine dependence, cigarettes, uncomplicated G25.81 Restless legs syndrome M79.7 Fibromyalgia F34.1 Dysthymic disorder F41.1 Generalized anxiety disorder Office Visit 03/18/2019 2:30p Main Office Tawanna Zacarias, R10.11 Right upper MD quadrant pain Z68.29 Body mass index (BMI) 29.0-29.9, adult Office Visit 03/04/2019 11:15a Main Office Joe Hurley, G89.4 Chronic pain M.D. syndrome Z79.891 group home (current) use of opiate analgesic F17.210 Nicotine dependence, cigarettes, uncomplicated G25.81 Restless legs syndrome M79.7 Fibromyalgia F34.1 Dysthymic disorder F41.1 Generalized anxiety disorder N39.46 Mixed incontinence Z68.30 Body mass index (BMI) 30.0-30.9, adult Office Visit 12/04/2018 10:15a Main Office Mei F17.210 Nicotine dependence, Tsering Diaz cigarettes, uncomplicated G89.4 Chronic pain syndrome Z79.891 group home (current) use of opiate analgesic G56.03 Carpal tunnel syndrome, bilateral upper limbs G25.81 Restless legs syndrome M79.7 Fibromyalgia F34.1 Dysthymic disorder F41.1 Generalized anxiety disorder N39.46 Mixed incontinence Z23 Encounter for immunization J45.21 Mild intermittent asthma with (acute) exacerbation Assessments Date Code Description Provider 05/16/2019 F43.22 Adjustment disorder with anxiety Joe Hurley M.D. 04/29/2019 M25.512 Pain in left shoulder Joe Hurley M.D. 04/29/2019 G89.4 Chronic pain syndrome Joe Hurley M.D. 04/29/2019 Z79.891 long term acute care registered nurse (current) use of opiate analgesic Joe Hurley [...] pain syndrome Joe Hurley M.D. 03/04/2019 Z79.891 long term acute care registered nurse (current) use of opiate analgesic Joe Hurley [...] pain syndrome Joe Hurley M.D. 12/04/2018 Z79.891 long term acute care registered nurse (current) use of opiate analgesic Joe Hurley [...] pm - Joe Hurley M.D. at Main Ieynmc4911/01/2017 - Jane Nolasco, PAB37.0 Candidal stomatitisNew Medication: Nystatin 511305 Unit/ML - 5ml by mouth (swish and [...]
[2019-06-02 15:58] VITALS: BP 122/72
--- NOTE | 2019-06-02 16:08 | UC ---
Shortness of Breath HPI - HPI Summary HPI Summary: 43-year-old female comes in with a chief complaint of 3 weeks of shortness of breath. Had shortness of breath intermittent fevers body aches during this time. Minimal rhinorrhea not bringing up any sputum. Tested negative for Covid on May 19, 2019. Patient does have a history of asthma. She reports using the albuterol does really help much. A week or more ago She was on an antibiotic for urinary tract infection. She reports she was on the antibiotic Bactrim, she did not feel like her symptoms improved. Laying flat makes the symptoms worse. Sitting upright does improve them. She feels chest tightness but, she denies any chest pain. She reports that she always has a fast heart rate. No calf pain or swelling. No history of DVT or pulmonary embolus. She is a smoker. She is not on estrogen. She reports intermittent fevers the last one was 3 days ago. She has been taking [id number] fever relievers. - History of Current Complaint Chief Complaint: UCRespiratory Stated Complaint: SHORT OF BREATH Time Seen by Provider: 06/02/19 15:07 Hx Last Menstrual Period: last month - Allergy/Home Medications Allergies/Adverse Reactions: Allergies Allergy/AdvReac Type Severity Reaction Status Date / Time Adhesive Tape Allergy BLISTERING, Verified 06/02/19 15:22 SANTILLAN aspirin Allergy Hives Verified 06/02/19 15:22 benzonatate Allergy Unknown Verified 06/02/19 15:22 Reaction Details codeine Allergy Swelling Verified 06/02/19 15:22 iodine Allergy Blisters Verified 06/02/19 15:22 latex Allergy Rash Verified 06/02/19 15:22 milk Allergy Vomiting Verified 06/02/19 15:22 morphine Allergy Hives Verified 06/02/19 15:22 naproxen Allergy HIVES AND Verified 06/02/19 15:22 CONSTIPATION Penicillins Allergy Swelling Verified 06/02/19 15:22 povidone-iodine Allergy Blisters Verified 06/02/19 15:22 [From Betadine] shellfish derived Allergy ANAPHYLACTI Verified 06/02/19 15:22 C soap [From Betadine] Allergy Blisters Verified 06/02/19 15:22 'cillins Allergy Severe anaphylaxis Uncoded 06/02/19 15:22 BEES Allergy ANAPHYLACTI Uncoded 06/02/19 15:22 C Home Medications: Home Medications Albuterol HFA INHALER* [Ventolin HFA Inhaler*] 2 puff INH Q4H PRN 12/25/16 [ History Confirmed 06/02/19] Cyclobenzaprine TAB* [Flexeril 10 MG TAB*] 10 mg PO TID PRN 12/25/16 [History Confirmed 06/02/19] Gabapentin CAP(*) [Neurontin 100 mg CAP(*)] 200 mg PO TID PRN 12/25/16 [History Confirmed 06/02/19] Oxymorphone HCl [Opana ER] 10 mg PO Q6H PRN 12/25/16 [History Confirmed 06/02/19 ] busPIRone TAB* [Buspar TAB *] 15 mg PO TID 12/25/16 [History Confirmed 06/02/19] Gabapentin 400 mg PO QPM 07/17/18 [History Confirmed 06/02/19] Albuterol 2.5MG/3ML (0.083%)* [Ventolin 2.5 MG/3 ML NEB.CASSIE*] 2.5 mg INH QID PRN 03/12/19 [History Confirmed 06/02/19] Cetirizine* [ZyrTEC 10 MG TAB*] 10 mg PO DAILY PRN 03/12/19 [History Confirmed 06/02/19] Erythromycin/Benzoyl Peroxide [Benzamycin 5-3 %] 1 applic TOPICAL BID 03/12/19 [ History Confirmed 06/02/19] Escitalopram * [Lexapro *] 20 mg PO DAILY 03/12/19 [History Confirmed 06/02/19] Fluticasone/Vilanterol [Breo Ellipta 200-25 Mcg INH] 1 each INH DAILY 03/12/19 [ History Confirmed 06/02/19] Oxymorphone ER (NF) [Opana ER (NF)] 7.5 mg PO DAILY 03/12/19 [History Confirmed 06/02/19] Oxymorphone ER (NF) [Opana ER (NF)] 30 mg PO BID 03/12/19 [History Confirmed 08/15] SUMAtriptan TAB* [Imitrex TAB*] 50 - 100 mg PO ONCE PRN MDD 3x/week 03/12/19 [ History Confirmed 06/02/19] Varenicline (NF) [Chantix 1 MG TAB (NF)] 1 mg PO BID 03/12/19 [History Confirmed 06/02/19] Azithromyxin SANTOS (NF) [Z-Santos (Zithromax) 250 mg tabs #6] 2 tab PO .TODAY, THEN 1 DAILY #6 tab 06/02/19 [Rx] PMH/Surg Hx/FS Hx/Imm Hx Previously Healthy: Yes Respiratory History: Asthma - Surgical History Surgical History: Yes Surgery Procedure, Year, and Place: 4 C-SECTIONS. URETERAL STENTS PLACED - Family History Known Family History: Positive: Cardiac Disease, Hypertension, Diabetes - Social History Alcohol Use: None Substance Use Type: Marijuana, Prescribed Substance Use Comment - Amount & Last Used: OCCASIONALLY TO HELP WITH SLEEP PER PATIENT Smoking Status (MU): Heavy Every Day Tobacco Smoker Amount Used/How Often: 1/2 PPD X 20 YEARS Have You Smoked in the Last Year: Yes Household Exposure Type: Cigarettes Review of Systems All Other Systems Reviewed And Are Negative: Yes Constitutional: Positive: Fever, Other - see hpi Skin: Positive: Negative Eyes: Positive: Negative ENT: Positive: Nasal Discharge - see hpi Respiratory: Positive: Shortness Of Breath, Other - see hpi Cardiovascular: Positive: Other - see hpi Gastrointestinal: Positive: Other - Decreased appetite Motor: Positive: Negative Neurovascular: Positive: Negative Musculoskeletal: Positive: Myalgia Neurological/Mental Status: Positive: Negative Psychological: Positive: Negative Is Patient Immunocompromised?: No Physical Exam Triage Information Reviewed: Yes Appearance: No Pain Distress, Well-Nourished, Ill-Appearing - mild, Other: - Does not appear short of breath at rest. Vital Signs: Initial Vital Signs Temp 98.6 F 06/02/19 15:57 Pulse 111 06/02/19 15:57 Resp 16 06/02/19 15:57 BP 122/72 06/02/19 15:57 Pulse Ox 95 06/02/19 15:57 Vital Signs Reviewed: Yes Eye Exam: Normal Eyes: Positive: Conjunctiva Clear ENT: Positive: Pharynx normal Neck: Positive: Supple Cardiovascular: Positive: Tachycardia Musculoskeletal: Positive: Strength Intact, ROM Intact, No Edema - No calf tenderness Neurological: Positive: Alert Psychological: Positive: Age Appropriate Behavior Skin Exam: Normal Shortness of Breath Dx - Course Course Of Treatment: Pipe [employer] Pipe: Barrie Phipps, ([id number]) 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 FINDINGS: The heart and mediastinum are normal in size and contour. The lungs are grossly clear. There is no evidence of large pleural effusion. Visualized bones are normal for the patient's age. There is no radiographic evidence of free air beneath the diaphragm IMPRESSION: No radiographic evidence of acute cardiopulmonary disease. <Electronically signed by Barrie Phipps MD in OV> 06/02/19 1630 Dictated By : Barrie Phipps MD Dictated Date/Time: 06/02/19 1623 Transcribed Date/Time: 06/01 1623 Copy to: CC:Joe Hurley MD; John Bonds MD Imaging - [facility] Imaging - [facility] Imaging - [facility] [address] [address] ph ([phone]) ph ([phone]) ph ([phone]) ===== End of Report Content I discussed the chest x-ray with the patient. Also discussed her vital signs. Oxygen saturation is 95% at rest on room air. I discussed with her that this is satisfactory however it's at the low range of satisfactory and that if he goes any lower she would need further evaluation in the emergency department. With the patient having intermittent fevers and shortness of breath we'll treat with azithromycin for potential bacterial bronchitis. We also discussed possibility of pulmonary embolus. Patient has no calf pain or swelling no history of DVT or PE. She has been having intermittent fevers. She is not on any estrogens. All of these factors make pulmonary embolus unlikely. Pericarditis is another possibility. I discussed with the patient that if she takes is azithromycin and her Covid comes back negative and she is continuing to have symptoms are recommended further evaluation emergency Department for the possibility of pericarditis or another cause of her symptoms. I let her know that if she worsens at any time she's to go directly to the emergency department. She will be an self-isolation as Covid testing result is pending. - Differential Dx/Diagnosis Provider Diagnosis: Shortness of breath, Fever Discharge ED - Sign-Out/Discharge Documenting (check all that apply): Patient Departure All imaging exams completed and their final reports reviewed: Yes - Discharge Plan Condition: Stable Disposition: HOME Prescriptions: Azithromyxin SANTOS (NF) [Z-Santos (Zithromax) 250 mg tabs #6] 2 tab PO .TODAY, THEN 1 DAILY #6 tab Patient Education Materials: Fever in Adults (ED), Shortness of Breath (ED) Forms: COVID-19 Tested & Isolation Referrals: Joe Hurley MD [Primary Care Provider] - [facility] Dept [Outside] Additional Instructions: PLACE YOURSELF IN HOME ISOLATION. THE [facility] DEPARTMENT WILL CONTACT YOU. CONTACT THEM TOMORROW IF YOU HAVE NOT HEARD FROM THEM. FOLLOW UP WITH YOUR DOCTOR. GO TO THE EMERGENCY DEPARTMENT IF NOT IMPROVED OR WORSE; SHORTNESS OF BREATH, CHEST PAIN, YOU FEEL ILL OR ANY QUESTIONS OR CONCERNS. - Billing Disposition and Condition Condition: STABLE Disposition: Home
== END 2019-06-02 17:20 | disposition home or self-care (01) ==
LOC: UCEAST 13:58
DX: R06.02 Shortness of breath (principal); R50.9 Fever, unspecified; Z20.828 Contact with and (suspected) exposure to other viral communicable diseases; J45.909 Unspecified asthma, uncomplicated; Z88.3 Allergy status to other anti-infective agents; Z91.030 Bee allergy status; Z91.040 Latex allergy status; Z91.011 Allergy to milk products; Z88.5 Allergy status to narcotic agent; Z88.0 Allergy status to penicillin; Z91.013 Allergy to seafood; Z88.8 Allergy status to other drugs, medicaments and biological substances; Z91.048 Other nonmedicinal substance allergy status; F17.200 Nicotine dependence, unspecified, uncomplicated
CPT/HCPCS: 71046; 87635; 99213; G0463